=== PATIENT | male | born 1955 | race Caucasian/White ===

== ENCOUNTER 2024-03-30 09:02 | Outpatient (CLI) | payer OTHER, SELFPAY ==
--- NOTE | ~2024-03-30 | XR_ITS ---
EXAMINATION: XR hip BI 2V w AP pelvis DATE: 03/30/2024 09:31 INDICATION: Right hip pain. Left hip pain. TECHNIQUE: An anteroposterior view of the pelvis and 2 views of each hip were obtained. COMPARISON: None. FINDINGS: Bone alignment is normal. No fracture. There is mild osteoarthritis of the hips. IMPRESSION: 1. Mild osteoarthritis of the hips. Reviewed, dictated and finalized at location A.
== END 2024-03-30 09:03 | disposition home or self-care (01) ==
PROVIDERS: Visit Provider Orthopaedic Surgery
DX: M16.0 Bilateral primary osteoarthritis of hip (principal)
CPT/HCPCS: 73521

== ENCOUNTER 2024-04-28 10:47 | Outpatient (CLI) | payer OTHER, SELFPAY ==
--- NOTE | ~2024-04-28 | MR_ITS ---
MRI of the lumbar spine Clinical History: Spinal stenosis Technique: Axial T2-weighted images, and sagittal T1-weighted, T2-weighted, and T2 fat-sat images wer e acquired. Findings: 5 mm anterolisthesis of L4 over L5 present. There is acute impression fracture of L5 verteb ral body with marrow edema and fracture line, but minimal loss of height. No other suspicious marrow signal abnormality seen. At L1-L2, there is minimal disc bulge and moderate facet arthropathy. No central canal stenosis. Ther e is moderate left neural foraminal narrowing. Mild right neural foraminal narrowing present. At L2-L3, there is no significant disc bulge or herniation. There is mild to moderate facet arthropat hy. No central canal stenosis or neural foraminal narrowing. At L3-L4, there is minimal disc bulge and moderate facet arthropathy. No central canal stenosis. Ther e is moderate bilateral neural foraminal narrowing. At L4-L5, there is diffuse disc bulge/protrusion with severe facet arthropathy, resulting in severe s sanchez canal stenosis/thecal sac compression. There is severe right neural foraminal narrowing and mod erate left neural foraminal narrowing. At L5-S1, there is minimal disc bulge with moderate facet arthropathy. No central canal stenosis. The re is severe bilateral neural foraminal compromise, left worse than right. Paravertebral soft tissues are unremarkable. Impression: Acute, mild compression fracture of L5. 5 mm anterolisthesis of L4 over L5. Severe degenerative spondylosis at L4-L5. Moderate to advanced degenerative spondylosis at L3-L4 and L5-S1, as detailed above. Reviewed, dictated and finalized at [facility]. Impression: Acute, mild compression fracture of L5. 5 mm anterolisthesis of L4 over L5. Severe degenerative spondylosis at L4-L5. Moderate to advanced degenerative spondylosis at L3-L4 and L5-S1, as detailed a rashel.
== END 2024-04-28 10:48 ==
LOC: MICIMG 10:48
PROVIDERS: PCP Orthopaedic Surgery; Visit Provider Orthopaedic Surgery
DX: M48.061 Spinal stenosis, lumbar region without neurogenic claudication (principal); M43.16 Spondylolisthesis, lumbar region; M47.896 Other spondylosis, lumbar region; M47.897 Other spondylosis, lumbosacral region; S32.050A Wedge compression fracture of fifth lumbar vertebra, initial encounter for closed fracture; X58.XXXA Exposure to other specified factors, initial encounter
CPT/HCPCS: 72148